=== PATIENT | male | born 1945 | race Caucasian/White ===

== ENCOUNTER 2021-08-27 19:59 | Emergency (ER) | payer SELFPAY ==
[~2021-08-27] VITALS: Ht 177.8 cm; Wt 77.0 kg
[2021-08-27 20:44] LABS: BASO # 0.1 x10^3/uL (0.0-0.2); BASO % 0 % (0-3); EOS % 0 % (0-3); HEMATOCRIT 36.7 % (39.0-53.0); HEMOGLOBIN 12.7 g/dL (13.0-17.5); LYMPH # 0.4 x10^3/uL (1.0-4.8); LYMPH % 3 % (24-48); MEAN CORPUSCULAR HEMOGLOBIN 33 pg (25-35); MEAN CORPUSCULAR HGB CONC 35 g/dL (31-37); MEAN CORPUSCULAR VOLUME 94 fL (79-100); MONO # 0.7 x10^3/uL (0.0-1.1); MONO % 5 % (0-9); NEUT # 11.9 x10^3/uL (1.8-7.7); NEUT % 91 % (31-73); PLATELET COUNT 220 x10^3/uL (140-400); RED BLOOD COUNT 3.91 x10^6/uL (4.30-5.70); RED CELL DISTRIBUTION WIDTH 14.5 % (11.5-14.5); WHITE BLOOD COUNT 13.1 x10^3/uL (4.0-11.0)
--- NOTE | 2021-08-27 20:44 | RAD ---
Single view chest dated 08/27/2021 8:40 PM: COMPARISON: 03/18/2021 Clinical Indication: Shortness of breath. Findings: Single upright portable exam of the chest was performed. Heart and mediastinal contours within normal limits. There is patchy and linear opacity at both lung bases, increased. No consolidation or pleura l effusion. No pneumothorax. Biapical lucency suggesting mild emphysema. IMPRESSION: 1. Increasing patchy and linear bibasilar opacity, atelectasis versus early pneumonia. Electronically signed by: Waylon Roberts MD (08/27/2021 8:42 PM) ROSALINDA
--- NOTE | 2021-08-27 20:55 | PHYS DOC ---
Past Medical History Past Medical History: A-Fib, CVA Smoking Status: Never Smoker Alcohol Use: None Drug Use: None General Adult EDM: Chief Complaint: DYSPNEA/RESPIRATORY DISTRESS HPI: HPI: Patient is a 76 year old male who present to ER due to generalized weakness, having trouble breathing. Patient said he was TESTED positive with COVID-19 on , 08/24/21. He had the symptom of body ache, general weakness, c ongestion on 08/24/2021. Patient denies any chest pain, no abdominal pain, no nausea vomiting patient said his program eligibility specialist put him on Zithromax and dexamethasone. Patient said he is on day 4 of the medications. He felt weaker today so he called his doctor who told him to come to ER. Patient is prescribed albuterol inhaler by his program eligibility specialist. Patient is not a smoker, he not on oxygen at home. Patient has history of atrial fibrillation, on Pradaxa. Review of Systems: Review of Systems: Constitutional: Denies fever or chills. Positive for general weakness Eyes: Denies change in visual acuity. [] HENT: Denies nasal congestion or sore throat. [] Respiratory: Positive for cough and trouble breathing Cardiovascular: Denies chest pain or edema. [] GI: Denies abdominal pain, nausea, vomiting, bloody stools or diarrhea. [] : Denies dysuria. [] Musculoskeletal: Denies back pain or joint pain. [] Integument: Denies rash. [] Neurologic: Denies headache, focal weakness or sensory changes. [] Endocrine: Denies polyuria or polydipsia. [] Lymphatic: Denies swollen glands. [] Psychiatric: Denies depression or anxiety. [] Heart Score: C/O Chest Pain: N/A Risk Factors: Risk Factors: DM, Current or recent (<one month) smoker, HTN, HLP, family history of CAD, obesity. Risk Scores: Score 0 - 3: 2.5% MACE over next 6 weeks - Discharge Home Score 4 - 6: 20.3% MACE over next 6 weeks - Admit for Clinical Observation Score 7 - 10: 72.7% MACE over next 6 weeks - Early Invasive Strategies Allergies: Allergies: Allergies Coded Allergies Type Severity Reaction Last Updated Verified doxycycline Allergy Intermediate 08/27/21 Yes dronedarone Allergy Intermediate 08/27/21 Yes esomeprazole Allergy Intermediate 08/27/21 Yes levofloxacin Allergy Intermediate 08/27/21 Yes lisinopril Allergy Intermediate 08/27/21 Yes pantoprazole Allergy Intermediate 08/27/21 Yes sotalol Allergy Intermediate 08/27/21 Yes tegaserod Allergy Intermediate 08/27/21 Yes tiotropium Allergy Intermediate 08/27/21 Yes umeclidinium Allergy Intermediate 08/27/21 Yes Physical Exam: PE: Constitutional: Well developed, well nourished, no acute distress, non-toxic appearance. [] HENT: Normocephalic, atraumatic, bilateral external ears normal, oropharynx moist, no oral exudates, nose normal. [] Eyes: PERRLA, EOMI, conjunctiva normal, no discharge. [] Neck: Normal range of motion, no tenderness, supple, no stridor. [] Cardiovascular:Heart rate regular rhythm, no murmur [] Lungs & Thorax: Bilateral breath sounds clear to auscultation [] Abdomen: Bowel sounds normal, soft, no tenderness, no masses, no pulsatile masses. [] Skin: Warm, dry, no erythema, no rash. [] Back: No tenderness, no CVA tenderness. [] Extremities: No tenderness, no cyanosis, no clubbing, ROM intact, no edema. [] Neurologic: Alert and oriented X 3, normal motor function, normal sensory function, no focal deficits noted. [] Psychologic: Affect normal, judgement normal, mood normal. [] Current Patient Data: Labs: Laboratory Tests Test 08/27/21 20:38 08/27/21 21:18 White Blood Count 13.1 x10^3/uL Red Blood Count 3.91 x10^6/uL Hemoglobin 12.7 g/dL Hematocrit 36.7 % Mean Corpuscular Volume 94 fL Mean Corpuscular Hemoglobin 33 pg Mean Corpuscular Hemoglobin Concent 35 g/dL Red Cell Distribution Width 14.5 % Platelet Count 220 x10^3/uL Neutrophils (%) (Auto) 91 % Lymphocytes (%) (Auto) 3 % Monocytes (%) (Auto) 5 % Eosinophils (%) (Auto) 0 % Basophils (%) (Auto) 0 % Neutrophils # (Auto) 11.9 x10^3/uL Lymphocytes # (Auto) 0.4 x10^3/uL Monocytes # (Auto) 0.7 x10^3/uL Eosinophils # (Auto) 0.0 x10^3/uL Basophils # (Auto) 0.1 x10^3/uL Segmented Neutrophils % 60 % Band Neutrophils % 20 % Lymphocytes % 15 % Monocytes % 2 % Metamyelocytes % 3 % Nucleated Red Blood Cells 11 Platelet Estimate Adequate Polychromasia Slight Basophilic Stippling Present Anisocytosis Slight Sodium Level 137 mmol/L Potassium Level 4.3 mmol/L Chloride Level 102 mmol/L Carbon Dioxide Level 28 mmol/L Anion Gap 7 Blood Urea Nitrogen 44 mg/dL Creatinine 1.6 mg/dL Estimated GFR (Cockcroft-Gault) 42.1 BUN/Creatinine Ratio 28 Glucose Level 146 mg/dL Calcium Level 8.3 mg/dL Magnesium Level 2.6 mg/dL Total Bilirubin 0.4 mg/dL Aspartate Amino Transf (AST/SGOT) 24 U/L Alanine Aminotransferase (ALT/SGPT) 24 U/L Alkaline Phosphatase 66 U/L Troponin I High Sensitivity 15 ng/L QA-Ylf-F-Type Natriuretic Peptide 920 pg/mL Total Protein 7.2 g/dL Albumin 3.0 g/dL Albumin/Globulin Ratio 0.7 SARS-CoV-2 Antigen (Rapid) Positive Current Medications Medications (Trade) Dose Ordered Sig/Kyung Route PRN Reason Start Time Stop Time Status Last Admin Dose Admin Casirivimab 600 mg/Imdevimab 600 mg/Sodium Chloride 50 ml @ 150 mls/hr 1X ONCE IV 08/27/21 22:30 08/27/21 22:49 DC 08/27/21 22:30 Laboratory Tests Test 08/27/21 20:38 White Blood Count 13.1 x10^3/uL (4.0-11.0) H Red Blood Count 3.91 x10^6/uL (4.30-5.70) L Hemoglobin 12.7 g/dL (13.0-17.5) L Hematocrit 36.7 % (39.0-53.0) L Mean Corpuscular Volume 94 fL (79-100) Mean Corpuscular Hemoglobin 33 pg (25-35) Mean Corpuscular Hemoglobin Concent 35 g/dL (31-37) Red Cell Distribution Width 14.5 % (11.5-14.5) Platelet Count 220 x10^3/uL (140-400) Neutrophils (%) (Auto) 91 % (31-73) H Lymphocytes (%) (Auto) 3 % (24-48) L Monocytes (%) (Auto) 5 % (0-9) Eosinophils (%) (Auto) 0 % (0-3) Basophils (%) (Auto) 0 % (0-3) Neutrophils # (Auto) 11.9 x10^3/uL (1.8-7.7) H Lymphocytes # (Auto) 0.4 x10^3/uL (1.0-4.8) L Monocytes # (Auto) 0.7 x10^3/uL (0.0-1.1) Eosinophils # (Auto) 0.0 x10^3/uL (0.0-0.7) Basophils # (Auto) 0.1 x10^3/uL (0.0-0.2) Platelet Estimate Pending Laboratory Tests 08/27/21 20:38 EKG: EKG: EKG was done at a 21, heart rate of 72 bpm, sinus rhythm, no ST segment elevation Radiology/Procedures: Radiology/Procedures: [][facility] [address] [place] [address] IMAGING REPORT Signed PATIENT: SHAWN STOVALL JACCOUNT: [id number] : 1945 LOCATION: ER AGE: 76 SEX: M EXAM STATUS: PRE ER ORD. PHYSICIAN: ABDIRIZAK ALEX DO REASON: SOA PROCEDURE: PORTABLE CHEST 1V Single view chest dated 08/27/2021 8:40 PM: COMPARISON: 03/18/2021 Clinical Indication: Shortness of breath. Findings: Single upright portable exam of the chest was performed. Heart and mediastinal contours within normal limits. There is patchy and linear opacity at both lung bases, increased. No consolidation or pleural effusion. No pneumothorax. Biapical lucency suggesting mild emphysema. IMPRESSION: 1. Increasing patchy and linear bibasilar opacity, atelectasis versus early pneumonia. Electronically signed by: Waylon Roberts MD (08/27/2021 8:42 PM) [facility] [place] DICTATED and SIGNED BY: WAYLON ROBERTS MD DATE: 08/27/21 [id number] 0 Course & Med Decision Making: Course & Med Decision Making Pertinent Labs and Imaging studies reviewed. (See chart for details) Patient is a 76-year-old male with history of COPD, who present to ER due to infection due to COVID-19. Patient had viral pneumonia due to COVID-19 infection. He required no oxygen, his oxygen saturation is 96% on room air. Patient was in no acute distress. Patient meets criteria for outpatient COVID-19 treatment to prevent worsening disease based on age greater than 50 and COPD 1) Patient has been given the fact sheet for patients and caregivers for COVID 19 and treatment 2) informed of alternatives to receiving what is REGEN-CoV - Casirivimab + Imdevimab 3) Patient informed that Regen-CoV is an approved drug and is authorized by the FDA under emergency use authorization. Patient will be discharged home, he will need to follow-up with his program eligibility specialist for outpatient evaluation and treatment. Patient was amenable to plan of care. Myra Disclaimer: Myra Disclaimer: This electronic medical record was generated, in whole or in part, using a voice recognition dictation system. Departure Departure Impression: Primary Impression: COVID-19 Additional Impression: Pneumonia due to COVID-19 virus Disposition: 01 HOME / SELF CARE / HOMELESS Condition: STABLE Referrals: VINAY CAGLE MD Please call this program eligibility specialist or your program eligibility specialist for follow up next week. Patient Instructions: Viral Syndrome Additional Instructions: WHAT ARE THE IMPORTANT POSSIBLE SIDE EFFECTS OF REGEN-COV (casirivimab and imdevimab)? Possible side effects of REGEN-COV are: Allergic reactions. Allergic reactions can happen during and after infusion or injection of REGEN-COV. Tell your healthcare provider right away or seek immediate medical attention if you get any of the following signs and symptoms of allergic reactions: fever, chills, nausea, headache, shortness of breath, low or high blood pressure, rapid or slow heart rate, chest discomfort or pain, weakness, confusion, feeling tired, wheezing, swelling of your lips, face, or throat, rash including hives, itching, muscle aches, feeling faint, dizziness and sweating. These reactions may be severe or life threatening. Worsening symptoms after treatment: You may experience new or worsening symptoms after infusion or injection, including fever, difficulty breathing, rapid or slow heart rate, tiredness, weakness or confusion. If these symptoms occur, contact your healthcare provider or seek immediate medical attention as some of these symptoms have required hospitalization. It is unknown if these symptoms are related to treatment or are due to the progression of COVID-19. The side effects of getting any medicine by vein may include brief pain, bleeding, bruising of the skin, soreness, swelling, and possible infection at the infusion site. The side effects of getting any medicine by subcutaneous injection may include pain, bruising of the skin, soreness, swelling, and possible infection at the injection site. These are not all the possible side effects of REGEN-COV. Not a lot of people have been given REGEN-COV. Serious and unexpected side effects may happen. REGEN-COV is still being studied so it is possible that all of the risks are not known at this time. It is possible that REGEN-COV could interfere with your body's own ability to fight off a future infection of SARS-CoV-2. Similarly, REGEN-COV may reduce your bodys immune response to a vaccine for SARS-CoV-2. Specific studies have not been conducted to address these possible risks. Talk to your healthcare provider if you have any questions. ABDIRIZAK ALEX DO Aug 27, 2021 20:55
[2021-08-27 21:00] LABS: CALCIUM 8.3 mg/dL (8.5-10.1); CREATININE 1.6 mg/dL (0.7-1.3); GFR 42.1; POTASSIUM 4.3 mmol/L (3.5-5.1)
[2021-08-27 21:07] LABS: ALBUMIN/GLOBULIN RATIO 0.7 (1.0-1.7); MAGNESIUM 2.6 mg/dL (1.8-2.4); TOTAL BILIRUBIN 0.4 mg/dL (0.2-1.0); TOTAL PROTEIN 7.2 g/dL (6.4-8.2)
[2021-08-27 21:30] LABS: % BANDS 20 % (0-9); % LYMPHS 15 % (24-48); % METAS 3 % (0-0); % MONOS 2 % (0-10); % SEGS 60 % (35-66); NUCLEATED RBC 11; PLT ESTIMATE ADEQUATE (ADEQUATE); POLYCHROMASIA SLIGHT
[2021-08-27 21:31] LABS: ANISOCYTOSIS SLIGHT
--- NOTE | 2021-08-27 22:07 | EKG ---
[facility] [address] [place] [address] Test Date: 2021-08-27 Test Time: 20:31:44 Pat Name: SHAWN STOVALL Department: Room: Gender: M [employer]: : 1945 Requested By: ABDIRIZAK ALEX Order Number: [id number] Reading MD: Eugenio Jim Measurements Intervals [place] Rate: 72 P: 34 SC: 142 QRS: -8 QRSD: 108 T: 9 QT: 390 QTc: 429 Interpretive Statements SINUS RHYTHM LEFTWARD AXIS Electronically Signed On 09-04-2021 10:57:02 [employer] by Eugenio Jim
[2021-08-27] MEDS ORDERED: CASIRIVIMAB/IMDEVIMAB 600/600mg in IV NS TV=50 ML IV ONE (22:30)
[2021-08-28 00:29] VITALS: BP 158/83
== END 2021-08-28 00:40 | disposition home or self-care (01) ==
LOC: ER 19:59
DX: U07.1 COVID-19 (principal); J12.82 Pneumonia due to coronavirus disease 2019; I48.91 Unspecified atrial fibrillation; Z86.73 Personal history of transient ischemic attack (TIA), and cerebral infarction without residual deficits; Z88.1 Allergy status to other antibiotic agents; Z88.8 Allergy status to other drugs, medicaments and biological substances
CPT/HCPCS: 36415; 71045; 80053; 83735; 83880; 84484; 85007; 85025; 87426; 93005; 96374; 99285; M0243; Q0244